=== PATIENT | male | born 1970 | race Caucasian/White ===

== ENCOUNTER 2024-09-11 15:16 | Emergency (ER) | payer OTHER ==
[2024-09-11 15:31] VITALS: BP 142/80; PULSE 68; RESP 16; TEMP 98.8; BMI 29.5
[2024-09-11] MEDS ORDERED: RABIES IMMUNE GLOBULIN 300 UNITS/1 ML VIAL ONE (16:10)
[2024-09-11] MEDS ORDERED: RABIES VACCINE (PCEC)/PF 2.5 UNIT/VIAL IM ONE (16:11)
[2024-09-11] MEDS ORDERED: RABIES IMMUNE GLOBULIN/PF 300 UNIT/ML (5 ML) VIAL IM ONE (16:11)
[2024-09-11] MEDS ORDERED: DIPHTH,PERTUSS(ACELL),TET 0.5 ML DISP.SYRIN IM ONE (16:17)
[2024-09-11] MEDS: IBUPROFEN 400 MG TABLET (FP) PO ONE (16:43)
[2024-09-11] MEDS ORDERED: IBUPROFEN 400 MG TABLET (FP) PO ONE (16:43)
[2024-09-11] MEDS: DIPHTH,PERTUSS(ACELL),TET 0.5 ML DISP.SYRIN IM ONE (17:55)
[2024-09-11] MEDS: RABIES IMMUNE GLOBULIN 300 UNITS/1 ML VIAL IM ONE (17:56)
[2024-09-11] MEDS: RABIES VACCINE (PCEC)/PF 2.5 UNIT/VIAL IM ONE (17:57)
== END 2024-09-11 18:23 | disposition home or self-care (01) ==
LOC: JERFT 15:16
PROC: 3E0234Z Introduction of Serum, Toxoid and Vaccine into Muscle, Percutaneous Approach (ICD-10-PCS; principal; 2024-09-11)
PROC: 3E0234Z Introduction of Serum, Toxoid and Vaccine into Muscle, Percutaneous Approach (ICD-10-PCS; 2024-09-11)
DX: S70.12XA Contusion of left thigh, initial encounter (principal); Z23 Encounter for immunization; W54.0XXA Bitten by dog, initial encounter
CPT/HCPCS: 90375; 90471; 90675; 90715; 99284-25

== ENCOUNTER 2024-09-18 20:10 | Emergency (ER) | payer OTHER ==
[2024-09-18 20:27] VITALS: BP 156/90; PULSE 83; RESP 18; TEMP 98.3; BMI 29.5
[2024-09-18] MEDS ORDERED: RABIES VACCINE (PCEC)/PF 2.5 UNIT/VIAL IM ONE (21:31)
[2024-09-18] MEDS: RABIES VACCINE (PCEC)/PF 2.5 UNIT/VIAL IM ONE (21:38)
== END 2024-09-18 21:10 | disposition home or self-care (01) ==
LOC: JERFT 20:10
PROC: 3E0234Z Introduction of Serum, Toxoid and Vaccine into Muscle, Percutaneous Approach (ICD-10-PCS; principal; 2024-09-18)
DX: Z29.14 Encounter for prophylactic rabies immune globulin (principal)
CPT/HCPCS: 90675; 99281-25

== ENCOUNTER 2024-09-25 20:40 | Emergency (ER) | payer OTHER ==
[2024-09-25 20:55] VITALS: BP 151/82; PULSE 66; RESP 18; TEMP 98; BMI 29.5
[2024-09-25] MEDS ORDERED: RABIES VACCINE (PCEC)/PF 2.5 UNIT/VIAL IM ONE (21:02)
[2024-09-25] MEDS: RABIES VACCINE (PCEC)/PF 2.5 UNIT/VIAL IM ONE (21:14)
== END 2024-09-25 21:17 | disposition home or self-care (01) ==
LOC: JER 20:40 → JERFT 20:40
PROC: 3E0234Z Introduction of Serum, Toxoid and Vaccine into Muscle, Percutaneous Approach (ICD-10-PCS; principal; 2024-09-25)
DX: Z29.14 Encounter for prophylactic rabies immune globulin (principal)
CPT/HCPCS: 90675; 99281-25